=== PATIENT | male | born 1980 ===

== ENCOUNTER 2025-07-21 18:16 | Emergency (ER) | payer OTHER ==
[~2025-07-21] VITALS: Ht 180.3 cm; Wt 75.0 kg
[2025-07-21] MEDS: IBUPROFEN 600 MG TABLET PO ONE (19:04)
[2025-07-21 19:15] VITALS: BP 136/87; PULSE 98; RESP 18; TEMP 98.005280; O2SAT 99
== END 2025-07-21 19:16 | disposition home or self-care (01) ==
LOC: EMS 18:16
DX: S90.122A Contusion of left lesser toe(s) without damage to nail, initial encounter (principal); W22.8XXA Striking against or struck by other objects, initial encounter; Y93.89 Activity, other specified; Y92.89 Other specified places as the place of occurrence of the external cause; Y99.8 Other external cause status
CPT/HCPCS: 99283